=== PATIENT | male | born 1990 | race Caucasian/White ===

== ENCOUNTER 2016-12-06 00:32 | Emergency (ER) | payer OTHER ==
[~2016-12-06] VITALS: Ht 165.1 cm; Wt 59.0 kg
[2016-12-06] MEDS ORDERED: LIDOCAINE 1%-EPI 1:100,000 20 ML VIAL ONE (02:45)
[2016-12-06] MEDS ORDERED: AMOX/CLAVULANATE 875 MG TABLET ONE (02:54)
[2016-12-06] MEDS ORDERED: HYDROCODONE/APAP 5/325MG 1 EACH TABLET ONE (02:54)
[2016-12-06] MEDS ORDERED: AMOX/CLAVULANATE 875 MG TABLET PO ONE (03:00)
[2016-12-06] MEDS ORDERED: HYDROCODONE/APAP 5/325MG 1 EACH TABLET PO ONE (03:00)
[2016-12-06 04:07] VITALS: BP 136/76
== END 2016-12-06 04:08 | disposition home or self-care (01) ==
LOC: ER 00:38
DX: S09.90XA Unspecified injury of head, initial encounter (principal); S02.2XXA Fracture of nasal bones, initial encounter for closed fracture; S02.40EA Zygomatic fracture, right side, initial encounter for closed fracture; S02.31XA Fracture of orbital floor, right side, initial encounter for closed fracture; Y04.2XXA Assault by strike against or bumped into by another person, initial encounter; Y93.89 Activity, other specified; Y92.89 Other specified places as the place of occurrence of the external cause; Y99.9 Unspecified external cause status
CPT/HCPCS: 12001; 70450; 70486; 72125; 73030; 99284; A4606; A6402; J3490; Z7610

== ENCOUNTER 2017-04-10 01:52 | Emergency (ER) | payer OTHER, MEDICAID ==
[~2017-04-10] VITALS: Ht 170.2 cm; Wt 72.6 kg
[2017-04-10] MEDS ORDERED: NALOXONE HCL 0.4 MG/ML AMPUL ONE ×2 (02:11→03:14)
[2017-04-10] MEDS ORDERED: IV NS 0.9% 1,000 ML ONE (02:19)
[2017-04-10] MEDS ORDERED: IV SET PRIMARY 1 EA INFUS.SET MC ONE (02:19)
[2017-04-10 02:24] LABS: BASOPHILS % (AUTO) 0.2 % (0.0-2.0); EOSINOPHILS # (AUTO) 0.2 /CMM (0.0-0.7); EOSINOPHILS % (AUTO) 2.5 % (0.0-6.0); HEMATOCRIT 36 % (39-51); HEMOGLOBIN 12.2 g/dL (13.5-17.5); LYMPHOCYTES # (AUTO) 3.4 /CMM (0.8-4.8); LYMPHOCYTES % (AUTO) 40.9 % (20.0-44.0); MEAN CORPUSCULAR HEMOGLOBIN 29 PG (26.0-33.0); MEAN CORPUSCULAR HGB CONC 34 g/dl (31.0-36.0); MEAN CORPUSCULAR VOLUME 85 fL (80-96); MONOCYTES # (AUTO) 0.4 /CMM (0.1-1.30); MONOCYTES % (AUTO) 5.3 % (2.0-12.0); NEUTROPHILS # (AUTO) 4.3 /CMM (1.8-8.9); NEUTROPHILS % (AUTO) 51.1 % (43.0-81.0); PLATELET COUNT (AUTO) 264 /CMM (150-450); RED BLOOD CELL COUNT(AUTO) 4.22 MIL/uL (4.5-6.0); WHITE BLOOD COUNT (AUTO) 8.4 K/uL (4.3-11.0)
[2017-04-10] MEDS ORDERED: LIDOCAINE 2% JEL UROJET 10 ML MM ONE ×2 (02:29→03:00)
[2017-04-10] MEDS ORDERED: NALOXONE HCL 0.4 MG/ML AMPUL IV ONE ×2 (02:30→03:30)
[2017-04-10] MEDS ORDERED: IV NS 0.9% 1,000 ML BAG IV ONE (02:30)
[2017-04-10 02:34] LABS: CALCIUM, SERUM 9.2 mg/dL (8.5-10.1); CARBON DIOXIDE 30 mmol/L (21-32); CHLORIDE 100 mmol/L (98-107); CREATININE 0.8 mg/dL (0.6-1.3); GLUCOSE 92 mg/dL (74-106); POTASSIUM 3.5 mmol/L (3.5-5.1); SODIUM SERUM 140 mmol/L (136-145); UREA NITROGEN, BLOOD 12 mg/dL (7-18)
[2017-04-10 02:40] LABS: ACETAMINOPHEN 0 ug/ml (10-30); ALANINE AMINOTRANSFERASE 25 U/L (12-78); ALBUMIN 3.9 g/dL (3.4-5.0); ALCOHOL, BLOOD < 3 mg/dL (0-0); ALKALINE PHOSPHATASE 58 U/L (46-116); ASPARTATE AMINOTRANSFERASE 17 U/L (15-37); BILIRUBIN,TOTAL 0.3 mg/dL (0.2-1.0); SALICYLATE 4.2 mg/dL (2.8-20.0); TOTAL PROTEIN, SERUM 7.9 g/dL (6.4-8.2)
[2017-04-10] MEDS ORDERED: diphenhydrAMINE HCL 50 MG/ML VIAL ONE (03:18)
[2017-04-10] MEDS ORDERED: PROCHLORPERAZINE EDISYLATE 10 MG/2 ML VIAL ONE (03:18)
[2017-04-10] MEDS ORDERED: OLANZAPINE 10 MG VIAL IM ONE ×2 (03:27→03:30)
[2017-04-10] MEDS ORDERED: WATER FOR INJECTION,STERILE 10 ML ONE (03:27)
[2017-04-10] MEDS ORDERED: PROCHLORPERAZINE EDISYLATE 10 MG/2 ML VIAL IVP ONE (03:30)
[2017-04-10] MEDS ORDERED: diphenhydrAMINE HCL 50 MG/ML VIAL IV ONE (03:30)
[2017-04-10] MEDS ORDERED: LABETALOL 20 MG/4 ML VIAL IV ONE (03:30)
[2017-04-10] MEDS ORDERED: LABETALOL 20 MG/4 ML VIAL ONE (03:34)
[2017-04-10] MEDS ORDERED: HALOPERIDOL LACTATE INJ 5 MG/ML VIAL ONE (04:00)
[2017-04-10] MEDS ORDERED: HALOPERIDOL LACTATE INJ 5 MG/ML VIAL IM ONE (04:00)
[2017-04-11 05:29] VITALS: BP 101/50
== END 2017-04-11 05:29 | disposition home or self-care (01) ==
LOC: ER 01:54
DX: F11.10 Opioid abuse, uncomplicated (principal); R45.851 Suicidal ideations; F17.200 Nicotine dependence, unspecified, uncomplicated; Y09 Assault by unspecified means; Y92.89 Other specified places as the place of occurrence of the external cause; Y93.89 Activity, other specified; Y99.8 Other external cause status
CPT/HCPCS: 36415; 51702; 70450; 80053; 80305; 80329; 85025; 93005; 96372 ×2; 96374; 96375; 96376; 99291; 99292; A4606; G0480 ×2; J0780; J1200; J1630; J2310 ×2; J3490 ×3; J7030; Z7610

== ENCOUNTER 2017-11-11 19:11 | Emergency (ER) | payer MEDICAID, OTHER ==
[~2017-11-11] VITALS: Ht 165.1 cm; Wt 68.0 kg
--- NOTE | 2017-11-11 19:35 | NUR ---
CALLED [facility] FOR MEDICAL RECORDS, THEY SAID MEDICAL RECORDS WAS CLOSED AND TO CALL BACK TOMORROW AT 8AM.
--- NOTE | 2017-11-11 19:42 | NUR ---
CALLED PT IN [place], NO RESPONSE
--- NOTE | 2017-11-11 20:03 | NUR ---
PT CAME FROM HOME C/O PAIN TO LEFT CHEST WALL, BREATHING EVEN/UNLABORED, PER PT "I FELL IN THE SHOWER TODAY 0500, WENT TO [facility], BUT THEY TOOK TOO LONG SO I LEFT"
--- NOTE | 2017-11-11 21:19 | NUR ---
pt sleeping, breathing loudly, arrousableto voice, nad noted, no c/o pain at this time, waiting on CT results
--- NOTE | 2017-11-11 22:49 | NUR ---
PT SLEEPING, ARROUSABLE TO VOICE, BREATHING UNLABORED NAD NOTED, CT RESULTED OK TO D/C
[2017-11-11 22:51] VITALS: BP 126/79
== END 2017-11-11 22:51 | disposition home or self-care (01) ==
LOC: ER 19:15
DX: S20.212A Contusion of left front wall of thorax, initial encounter (principal); W01.0XXA Fall on same level from slipping, tripping and stumbling without subsequent striking against object, initial encounter; Y93.89 Activity, other specified; Y92.89 Other specified places as the place of occurrence of the external cause; Y99.8 Other external cause status; S09.8XXA Other specified injuries of head, initial encounter; F15.10 Other stimulant abuse, uncomplicated; F11.10 Opioid abuse, uncomplicated; F17.200 Nicotine dependence, unspecified, uncomplicated
CPT/HCPCS: 70450; 70486; 71100; 99284; A4606; Z7610